=== PATIENT | female | born 1970 | race African-American/Black ===

== ENCOUNTER 2022-01-01 18:47 | Emergency (ER) | payer OTHER, MEDICAID ==
[2022-01-01] MEDS ORDERED: Ketorolac Tromethamine 30 MG/ML VIAL ONE (19:52)
[2022-01-01 21:05] LABS: SARS-CoV-2 NAA Rapid Test Not Detected (NotDetected)
== END 2022-01-01 21:44 | disposition home or self-care (01) ==
LOC: CSHERS 18:47
DX: J10.1 Influenza due to other identified influenza virus with other respiratory manifestations (principal); I10 Essential (primary) hypertension; Z20.822 Contact with and (suspected) exposure to COVID-19
CPT/HCPCS: 0240U; 71045; 93005; 94640; 96372; J1885; J7620

== ENCOUNTER 2024-04-10 13:30 | Inpatient (IN) | payer OTHER, MEDICAID ==
[2024-04-14] MEDS ORDERED: PROPOFOL 20 ML ONE (10:42)
[2024-04-14] MEDS ORDERED: Fentanyl 100 MCG/2 ML VIAL ONE ×2 (10:42→13:05)
[2024-04-14] MEDS ORDERED: Midazolam HCl 2 mg/2 ml Vial ONE (11:31)
[2024-04-14] MEDS ORDERED: Bupivacaine HCl 0.5%/Epinephrine 1:200,000/PF 30 ml Vial ONE ×2 (11:33→13:26)
[2024-04-14] MEDS ORDERED: Lidocaine 1% PF 5 ML VIAL ONE (11:34)
[2024-04-14] MEDS ORDERED: CEFAZOLIN 2 GM VIAL ONE (11:49)
[2024-04-14] MEDS ORDERED: SUCCINYLCHOLINE/SOD CL,ISO/PF 200 MG/10 ML SYRINGE FS ONE (12:15)
[2024-04-14] MEDS ORDERED: PHENYLEPHRINE-NS 100 MCG/ML 10 ML SYRINGE ONE (13:01)
[2024-04-14] MEDS ORDERED: Tranexamic Acid 1,000 MG/10 ML VIAL ONE (13:03)
[2024-04-14] MEDS ORDERED: ePHEDrine Sulfate 50 MG/10 ML VIAL ONE (13:46)
[2024-04-14] MEDS ORDERED: Ondansetron PF 4 MG/2 ML Vial ONE (14:08)
[2024-04-14] MEDS ORDERED: SUGAMMADEX SODIUM 200 MG/2 ML VIAL ONE (14:13)
[2024-04-14] MEDS ORDERED: Ipratropium/Albuterol 3 ML NEB ONE (14:42)
[2024-04-14] MEDS ORDERED: Zolpidem Tartrate 5 MG TAB PO PRN (14:43)
[2024-04-14] MEDS ORDERED: Acetaminophen 325 MG TAB PO PRN (14:43)
[2024-04-14] MEDS ORDERED: diphenhydrAMINE 25 MG CAP PO PRN (14:43)
[2024-04-14] MEDS ORDERED: Promethazine HCl 25 MG/ML VIAL IM PRN (14:43)
[2024-04-14 16:45] VITALS: BMI 55.6
[2024-04-14] MEDS: Ketorolac Tromethamine 30 MG (1 mL) VIAL IVP SCH (18:03)
[2024-04-14] MEDS: Cyclobenzaprine 10 MG TAB PO SCH (18:03)
[2024-04-14] MEDS: CEFAZOLIN 2 GM in Sodium Chloride 0.9% 100 ML IVPB SCH (19:57)
[2024-04-14] MEDS: Ferrous Gluconate 324 MG TAB PO SCH (20:56)
[2024-04-14] MEDS: Pregabalin 75 MG CAP PO SCH (20:57)
[2024-04-14] MEDS: Aspirin 81 mg Enteric Coated Tablet PO SCH (20:57)
[2024-04-14] MEDS: Senokot S 8.6-50 MG TAB PO SCH (20:57)
[2024-04-14] MEDS: Flecainide 50 MG TAB PO SCH (20:57)
[2024-04-15] MEDS: Morphine 2 MG/ML VIAL SLOW IVP PRN (01:29)
[2024-04-15 04:26] LABS: Hematocrit 39.1 % (34.9-44.5); Hemoglobin 11.6 g/dL (12.0-15.5); Mean Corpuscular HGB CONC 29.7 g/dL (32.0-36.0); Mean Corpuscular Hemoglobin 28.2 pg (27.0-33.0); Mean Corpuscular Volume 95.1 fL (81.6-98.3); Platelet Count 244 10x3/uL (150-450); Red Blood Cell (RBC) Count 4.11 10x6/uL (3.90-5.03); White Blood Cell (WBC) Count 14.17 10x3/uL (3.5-10.5)
[2024-04-15] MEDS: Morphine 4 MG/ML VIAL SLOW IVP PRN (07:55)
[2024-04-15] MEDS: Isosorbide Mononitrate 30 MG ER.TAB PO SCH (08:18)
[2024-04-15] MEDS: Pregabalin 75 MG CAP PO SCH (08:19)
[2024-04-15] MEDS: Multivitamin W/ Minerals 1 TAB PO SCH (08:19)
[2024-04-15] MEDS: Metoprolol Succinate XL 25 MG ER.TAB PO SCH (08:19)
[2024-04-15] MEDS: Amlodipine 10 MG TAB PO SCH (08:20)
[2024-04-15] MEDS: Triamterene/Hydrochlorothiazide 37.5 mg/25 mg Tablet PO SCH (08:20)
[2024-04-15] MEDS: Sertraline 100 MG TAB PO SCH (08:20)
[2024-04-15] MEDS: Valsartan 80 MG TAB PO SCH (08:21)
[2024-04-15] MEDS ORDERED: Furosemide 20 MG TAB PO PRN (09:00)
[2024-04-15] MEDS: HYDROcodone/Acetaminophen 10/325 mg Tablet PO PRN (10:02)
[2024-04-16 05:19] LABS: Hemoglobin 10.5 g/dL (12.0-15.5); Mean Corpuscular HGB CONC 30.9 g/dL (32.0-36.0); Mean Corpuscular Hemoglobin 29.2 pg (27.0-33.0); Mean Corpuscular Volume 94.4 fL (81.6-98.3); Mean Platelet Volume 10.4 fL (7.4-10.4); Platelet Count 249 10x3/uL (150-450); RBC Distribution Width 14.4 % (11.5-14.5); White Blood Cell (WBC) Count 13.94 10x3/uL (3.5-10.5)
[2024-04-16] MEDS: HYDROcodone/Acetaminophen 10/325 mg Tablet PO PRN (10:06)
[2024-04-16] MEDS: Ondansetron PF 4 MG/2 ML Vial IVP PRN (17:53)
[2024-04-17 03:57] LABS: Hematocrit 34.9 % (34.9-44.5); Hemoglobin 10.2 g/dL (12.0-15.5); Mean Corpuscular HGB CONC 29.2 g/dL (32.0-36.0); Mean Corpuscular Hemoglobin 27.7 pg (27.0-33.0); Mean Corpuscular Volume 94.8 fL (81.6-98.3); Mean Platelet Volume 10.2 fL (7.4-10.4); Platelet Count 224 10x3/uL (150-450); RBC Distribution Width 14.2 % (11.5-14.5); Red Blood Cell (RBC) Count 3.68 10x6/uL (3.90-5.03); White Blood Cell (WBC) Count 11.28 10x3/uL (3.5-10.5)
[2024-04-18 04:47] LABS: Hematocrit 32.5 % (34.9-44.5); Hemoglobin 10.2 g/dL (12.0-15.5); Mean Corpuscular HGB CONC 31.4 g/dL (32.0-36.0); Mean Corpuscular Hemoglobin 29.2 pg (27.0-33.0); Mean Corpuscular Volume 93.1 fL (81.6-98.3); Mean Platelet Volume 10.2 fL (7.4-10.4); Platelet Count 231 10x3/uL (150-450); RBC Distribution Width 14.1 % (11.5-14.5); Red Blood Cell (RBC) Count 3.49 10x6/uL (3.90-5.03); White Blood Cell (WBC) Count 9.16 10x3/uL (3.5-10.5)
[2024-04-19 04:17] LABS: Hematocrit 31.8 % (34.9-44.5); Hemoglobin 10.3 g/dL (12.0-15.5); Mean Corpuscular HGB CONC 32.4 g/dL (32.0-36.0); Mean Corpuscular Hemoglobin 29.5 pg (27.0-33.0); Mean Corpuscular Volume 91.1 fL (81.6-98.3); Mean Platelet Volume 10.2 fL (7.4-10.4); Platelet Count 244 10x3/uL (150-450); RBC Distribution Width 13.8 % (11.5-14.5); Red Blood Cell (RBC) Count 3.49 10x6/uL (3.90-5.03); White Blood Cell (WBC) Count 9.72 10x3/uL (3.5-10.5)
[2024-04-21 16:12] VITALS: BP 119/62; TEMP 97.8
== END 2024-04-21 17:40 | disposition home or self-care (01) | DRG 470 ==
LOC: INTOOBSV 04-14 10:02 → CSHTELE 04-14 10:02 → OBSVTOIN 04-15 12:37
PROVIDERS: ADMIT Orthopaedic Surgery; ATTEND Orthopaedic Surgery
PROC: 0SRC0J9 Replacement of Right Knee Joint with Synthetic Substitute, Cemented, Open Approach (ICD-10-PCS; principal; 2024-04-15)
DX: M17.11 Unilateral primary osteoarthritis, right knee (principal); Z68.43 Body mass index [BMI] 50.0-59.9, adult; M25.761 Osteophyte, right knee; E66.01 Morbid (severe) obesity due to excess calories
CPT/HCPCS: 36415; 85027; 94660; 94760; 94762; 96374; 96375; 96376; C1776; G0378; J1885; J2250; J2270; J2272; J2405; J2704; J3010; J7620

== ENCOUNTER 2024-08-21 11:47 | Outpatient (CLI) | payer OTHER | END 2024-08-21 11:48 | disposition home or self-care (01) | LOC: CSHWCC 11:47 | PROVIDERS: ATTEND Nurse Practitioner Family | DX: T81.31XD Disruption of external operation (surgical) wound, not elsewhere classified, subsequent encounter (principal); L97.811 Non-pressure chronic ulcer of other part of right lower leg limited to breakdown of skin | CPT/HCPCS: 11042; 11045 ==

== ENCOUNTER 2024-10-01 11:26 | Outpatient (CLI) | payer OTHER | END 2024-10-01 11:27 | disposition home or self-care (01) | LOC: CSHWCC 11:26 | PROVIDERS: ATTEND Nurse Practitioner Family | DX: T81.31XD Disruption of external operation (surgical) wound, not elsewhere classified, subsequent encounter (principal); L97.811 Non-pressure chronic ulcer of other part of right lower leg limited to breakdown of skin | CPT/HCPCS: 11042; G0463; 99213 ==

== ENCOUNTER 2024-10-08 11:17 | Outpatient (CLI) | payer OTHER | END 2024-10-08 11:18 | disposition home or self-care (01) | LOC: CSHWCC 11:17 | PROVIDERS: ATTEND Nurse Practitioner Family | DX: T81.31XD Disruption of external operation (surgical) wound, not elsewhere classified, subsequent encounter (principal); L97.811 Non-pressure chronic ulcer of other part of right lower leg limited to breakdown of skin | CPT/HCPCS: 11042; 99213; G0463 ==

== ENCOUNTER 2024-11-05 11:27 | Outpatient (CLI) | payer OTHER, MEDICAID | END 2024-11-05 11:28 | disposition home or self-care (01) | LOC: CSHWCC 11:27 | PROVIDERS: ATTEND Nurse Practitioner Family | DX: T81.31XD Disruption of external operation (surgical) wound, not elsewhere classified, subsequent encounter (principal); L97.811 Non-pressure chronic ulcer of other part of right lower leg limited to breakdown of skin; L08.9 Local infection of the skin and subcutaneous tissue, unspecified | CPT/HCPCS: 11042; G0463; 99213 ==

== ENCOUNTER 2024-11-26 10:54 | Outpatient (CLI) | payer OTHER | END 2024-11-26 10:55 | disposition home or self-care (01) | LOC: CSHWCC 10:54 | PROVIDERS: ATTEND Nurse Practitioner Family | DX: T81.31XD Disruption of external operation (surgical) wound, not elsewhere classified, subsequent encounter (principal); L97.811 Non-pressure chronic ulcer of other part of right lower leg limited to breakdown of skin | CPT/HCPCS: 11042 ==

== ENCOUNTER 2024-12-03 11:13 | Outpatient (CLI) | payer OTHER | END 2024-12-03 11:14 | disposition home or self-care (01) | LOC: CSHWCC 11:13 | PROVIDERS: ATTEND Nurse Practitioner Family | DX: T81.31XD Disruption of external operation (surgical) wound, not elsewhere classified, subsequent encounter (principal); L97.811 Non-pressure chronic ulcer of other part of right lower leg limited to breakdown of skin | CPT/HCPCS: 97597 ==

== ENCOUNTER 2024-12-10 11:03 | Outpatient (CLI) | payer OTHER, MEDICAID | END 2024-12-10 11:04 | disposition home or self-care (01) | LOC: CSHWCC 11:03 | PROVIDERS: ATTEND Nurse Practitioner Family | DX: T81.31XD Disruption of external operation (surgical) wound, not elsewhere classified, subsequent encounter (principal); L97.811 Non-pressure chronic ulcer of other part of right lower leg limited to breakdown of skin | CPT/HCPCS: 99212; G0463 ==